=== PATIENT | female | born 1955 | race Caucasian/White ===

== ENCOUNTER → 2024-06-10 08:35 | Outpatient (REF) | payer MEDICARE, OTHER, SELFPAY | LOC: WDC 08:35 | PROVIDERS: ATTENDING PHYSICIAN Obstetrics & Gynecology; FAMILY PHYSICIAN Internal Medicine | DX: Z12.31 Encounter for screening mammogram for malignant neoplasm of breast (principal) | CPT/HCPCS: 77063; 77067 ==

== ENCOUNTER 2025-01-06 20:20 | Observation (INO) | payer MEDICARE, OTHER, SELFPAY ==
[2025-01-06] VITALS (7 sets, daily range): BP systolic 102–142; BP diastolic 65–114; BMI 26.0; BMI 25.0
[2025-01-06 13:51] LABS: Hematocrit 36.8 % (37.0-47.0); Hemoglobin 12.3 g/dL (12.0-16.0); Mean Corp Hgb Conc. 33.4 g/dL (33.0-37.0); Mean Corpuscular Volume 91.1 fL (81.0-99.0); Nucleated Red Blood Cells % 0 %; Platelet Count 206 10^3/uL (130-400); Red Cell Dist. Width 12.2 % (11.5-14.5)
[2025-01-06 14:21] LABS: ALT (SGPT) 15 U/L (0-35); AST (SGOT) 27 U/L (14-36); Albumin 4.0 g/dl (3.5-5.0); Alkaline Phosphatase 72 U/L (38-126); Blood Urea Nitrogen 14 mg/dl (7-17); Calcium 8.9 mg/dl (8.4-10.2); Carbon Dioxide 25 mmol/L (22-30); Chloride 106 mmol/L (98-107); Glucose 163 mg/dl (70-99); Potassium 4.0 mmol/L (3.5-5.1); Sodium 137 mmol/L (135-145); Total Protein 6.1 g/dl (6.3-8.2); eGFR > 60.00
[2025-01-06 14:31] LABS: Troponin I < 0.012 ng/ml
--- NOTE | 2025-01-06 16:30 | ED.GENMED ---
History of Present Illness
General
Chief Complaint: Weakness
Source: patient
Exam Limitations: none
Time Seen by Provider: 01/06/25 16:10
Nursing documentation reviewed up to this point in time: agreed with
History of Present Illness
History of Present Illness:
Patient to ED for eval of mental status changes. States this AM she was having difficulty focusing. reports slurred speech. She also reports that her gait seemed off. tried to get her to come to ED this AM but she declined. This
afternoon spoke with PCP and was able to convince her to come to ED. While in waiting room her symptoms subsided. Denies headache, dizziness, vision changes. Denes fever/chlls, recent llness. No cp/pressure, SOB. No prior history of
similar symptoms. On exam now she is symptom free.
Past History
Past History
ED Past Medical History: Other (RA, vertigo)
Social History
Tobacco: Former smoker
Alcohol: Occasional
Family History
Family History: Other (Mother and father with coronary disease and diabetes)
Review of Systems
Review of Systems
Allergies reviewed?: Yes
All Other Systems: ROS reviewed and negative except as documented in HPI and ROS
Constitutional: Reports no symptoms
EENT: Reports no symptoms
Respiratory: Reports no symptoms
Cardiac: Reports no symptoms
ABD/GI: Reports no symptoms
: Reports no symptoms
Musculoskeletal: Reports no symptoms
Skin: Reports no symptoms
Neurological: Reports other (confusion this AM, unable to focus, slurred speech, 'gait off')
Psychiatric: Reports no symptoms
Phy Exam
General Physical Exam
General Presentation: well appearing and no apparent distress
General age: appears stated age
General Skin: warm and dry
General Habitus: normal
General Mental: alert
Cardiovascular Exam
Cardiovascular Exam: regular rate/rhythm and no edema
Pulmonary Exam
Pulmonary Exam: lungs clear and no respiratory distress
Gastrointestinal Exam
Gastrointestinal Exam: non tender, soft, no organomegaly and non distended
Neurological Exam
Neurological Exam: alert, oriented x3, CN II-XII intact, no motor deficits, no sensory deficits and speech normal
Musculoskeletal Exam
Musculoskeletal Exam: full ROM and neuro vasc intact
Skin Exam
Skin Exam: normal color, warm/dry and no rash
Psychiatric Exam
Psychiatric Exam: normal mood/affect
Course
Orders/Labs/Results
Orders:
Orders
01/06/25 13:24
Electrocardiogram (*1) Urgent
Reason for Study: Fatigue / Weakness
EKG- Treatment ONCE
01/06/25 13:37
Complete Blood Count/With Diff Urgent
Comprehensive Metabolic Panel Urgent
Troponin I Urgent
01/06/25 16:29
CT Head W/o Iv Contrast Urgent
Comment:
Reason For Exam: change in mental status
01/06/25 17:47
Urinalysis Reflex To Culture Urgent
Date Specimen was Collected: 01/06/25
Time Specimen was Collected: 17:42
Urine Microscopic Reflex Cult Urgent
01/06/25 18:21
Aspirin 325 mg PO NOW STA
01/06/25 19:39
Clopidogrel Bisulfate [Plavix] 300 mg PO NOW STA
01/06/25 19:43
Admit/Transfer Patient As Directed
Co-Sign Provider:
Level of Care: Observation services
Assign to:: Telemetry
Physician / Group: Rebecca Watson
Diagnosis: TIA
Reason for Telemetry: CVA/TIA
Date to Stop Telemetry: 01/09/25
Time to Stop Telemetry: 11:00
Code Status As Directed
Resuscitation Status: Full Code
PRN Pain Medication Management As Directed
May give lesser potent ordered pain med per pt: Yes
preference::
Protocol:: Medication orders for pain may be administered in a
manner that supports deferring to patient preference
when the pt is:
- Requesting an ordered lesser potent pain medication.
Least to most potent pain medications are defined
as: acetaminophen < NSAID < tramadol < opioids
(morphine, oxycodone, hydromorphone).
- Requesting a lesser dose of the same medication IF
ORDERED.
- Requesting a less intrusive route of administration
if both routes are prescribed by the provider (PO <
IV).
01/06/25 22:02
Acetaminophen [Tylenol] 650 mg PO Q4HPRN PRN
Atorvastatin [Lipitor] 40 mg PO QPM
01/06/25 22:02
Echo 2D MMode Color/Doppler Routine
Reason for Study: stroke/TIA
Case Management Consult ONCE
Case Management Consult: Discharge Planning
Comment: stroke/tia
DIETARY IP CONSULT Routine
Reason for Consult: stroke/TIA
NEUROLOGY CONSULT Routine
Consulting Provider: Js Wyman
Was physician already notified: Yes
Nutritionist Public [facility] Urgent
MA [place] Routine
Comment:
Reason For Exam: stroke/TIA
Recent pill cam endoscopy?: No
MA Neck With Contrast Routine
Comment:
Reason For Exam: stroke/TIA
Recent pill cam endoscopy?: No
MR Brain Without Contrast Routine
Comment:
Reason For Exam: stroke/TIA
Recent pill cam endoscopy?: No
Activity As Directed
Activity Level: As Tolerated
NIH Stroke Scale As Directed
Directions: Per protocol
Comment: every shift and with any change in condition or mental status
Neurological Checks As Directed
Frequency: q4h
Additional Instructions:: q4h x 24h upon admission to the floor, then qshift & with any change in condition
and mental status
Patient Education As Directed
Type: Stroke education packet
Comment: provide to patient and family
Swallow Screening CVA/TIA ONLY As Directed
Comment: NPO until swallowing screening completed
If patient FAILS swallow screening:: NPO, Speech Therapy consult, Aspiration Precautions
If patient PASSES swallow screening, diet:: Cholesterol Lowering
Above diet order entered?: Yes- passed screening
Vital Signs As Directed
Frequency: Per unit guidelines
Ot Eval And Treat Routine
Pt Eval And Treat Routine
Activity Level: As Tolerated
Speech Therapy Eval & Treat Routine
DX Deep Vein Thrombosis Video Routine
01/06/25 23:00
Amitriptyline [Elavil] 10 mg PO HS
Amitriptyline [Elavil] 25 mg PO HS
Psyllium [Metamucil, Konsyl] 1 packet PO TID@0900,1700,2300
01/07/25 06:00
Cardiovascular Evaluation IN AM
Glycohemoglobin (HgbA1c) IN AM
01/07/25 08:00
Aspirin Chewable [Low Strength Aspirin] 81 mg PO DAILY
Clopidogrel Bisulfate [Plavix] 75 mg PO DAILY
Hydroxychloroquine [Plaquenil] 200 mg PO DAILY
Lactobac/Bifidobac [Visbiome] 1 cap PO DAILY
01/07/25 18:00
Enoxaparin Sodium [Lovenox] 40 mg SC QPM
01/09/25 11:00
DC Protocol for Telemetry ONCE
Abnormal Lab Results
01/06/25 01/06/25
13:37 17:47
RBC 4.04 L 10^6/uL
(4.20-5.40)
Hct 36.8 L %
(37.0-47.0)
Absolute Neuts (auto) 6.8 H 10^3/uL
(1.4-6.5)
Absolute Lymphs (auto) 0.7 L 10^3/uL
(1.2-3.4)
Neutrophils % 84.9 H %
(42.2-75.2)
Lymphocytes % 9.1 L %
(20.5-51.1)
Glucose 163 H mg/dl
(70-99)
Total Protein 6.1 L g/dl
(6.3-8.2)
Urine Albumin (Reflex) 1+ A
(Neg - Trace)
01/06/25 13:37
01/06/25 13:37
Vital Signs
Initial and Last Documented VS:
Initial Vital Signs
Temp Pulse Resp Pulse Ox
97.4 F 69 16 96
01/06/25 13:21 01/06/25 13:21 01/06/25 13:21 01/06/25 13:21
Last Documented Vital Signs
Temp Pulse Resp BP Pulse Ox
98 F 64 14 133/69 99
01/06/25 23:57 01/06/25 23:57 01/06/25 23:57 01/06/25 23:57 01/06/25 23:57
*Pulse Oximetry
SaO2: 96
Oxygen Mode of Delivery: Room air
Patient hypoxic: no
*Critical Care Note
Total Time (30-74mins, 75-104mins- exclusive of procedures): Not Applicable
Update Note
Update Note:
Patient to ED wtih report of slurred speech, difficulties with gait, unable to focus. Symptoms started this AM, resolved prior to exam. No prior history of same. Labs, CT reviewed, no findings to explain her symptoms. Concern for TIA. WIll admit
to hospitalist service. ASA 325mg given in ED
ED Attending Note
-
Portions of this chart may have been created with voice recognition software.� Occasional wrong word or��sound alike� substitutions may have occurred due to the inherent limitations of voice recognition software.
Discharge Plan
Departure
Patient Disposition: Admit
Date of Disposition: 01/06/25
Time of Disposition: 18:20
Presentation/result/management discussed w/ accepting MD/DO: Hospitalist
Patient with high blood pressure during this ER visit?: No
Condition: Fair
Covid-19: Not Applicable
Discharge Problem:
TIA (transient ischemic attack)
Interventions
Interventions:
*Risk Screen - Suicide Last Done: 01/06/25 13:21
*General Assessment Last Done: 01/06/25 16:48
*Neglect/Abuse Screening Last Done: 01/06/25 13:21
*ED- Fall Risk Assessment Last Done: 01/06/25 16:48
*ED COVID-19 Vaccine History Last Done: 01/06/25 16:48
*Nursing Disposition Last Done: 01/06/25 22:00
ED- Cardiac Assessment Last Done: 01/06/25 17:00
ED- Neurological Assessment Last Done: 01/06/25 19:45
ED- Pulmonary Assessment Last Done: 01/06/25 17:00
Discharge Date and Time
Discharge Date/Time: 01/06/25 22:01
[2025-01-06 17:59] LABS: Urine Character Clear (Clear)
[2025-01-06 18:29] LABS: Urine Red Blood Cell 0-2 /HPF (0-2); Urine Squamous Cell 0-2 /LPF (Few); Urine White Cell 0-2 /HPF (0-5)
[2025-01-06] MEDS: ASPIRIN 325 MG PO (18:45)
--- NOTE | 2025-01-06 19:10 | HPS.HSE ---
Family Physician
-
Family Physician: Sriram Rios
Chief Complaint
-
weakness
History of Present Illness
Ms. Saida Vanegas is a 69 yo woman with hx RA, vertigo who presents to the ER with report of slurred speech and abnormal gait. While in the waiting room, her symptoms subsided.
Patient unable to clearly describe timeline of events. She felt like she had difficulty doing things. She said her reported symptoms lasted for 3 hours. No trouble swallowing during event. Denies weakness in one side but had trouble
walking.
No recent fevers/chills. No chest pain. No nausea/vomiting/diarrhea. No LE swelling.
Medical History
Past Medical History
Past Medical History: Reports Other (RA, vertigo)
Past Surgical History: Reports Other
Social History
Tobacco: Former Smoker
Alcohol: None
Family History
Family History: Not pertinent
Allergies / Home Medications
Allergies reflects when Allergies were last updated in [facility].
Home Medications with original date entered in [facility]
Allergy/Medication List:
Allergies
Allergy/AdvReac Type Severity Reaction Status Date / Time
No Known Allergies Allergy Verified 01/06/25 13:23
Home Medications
Lactobac no.2-Bifidobac no.1-S. thermo 112.5 billion cell capsule (Visbiome) 1 cap PO DAILY 01/06/25
amitriptyline 10 mg tablet 10 mg PO DAILY 01/06/25
amitriptyline 25 mg tablet 25 mg PO DAILY 01/06/25
hydroxychloroquine 200 mg tablet (Plaquenil) 200 mg PO DAILY 01/06/25
psyllium 1 packet PO TID 01/06/25
Review of Systems
-
History Source: Patient
A 12 point ROS was completed and negative except as noted: Yes
Physical Exam
Vital Signs
Vital Signs
Temp Pulse Resp BP Pulse Ox
97.4 F 65 15 113/67 99
01/06/25 13:21 01/06/25 18:45 01/06/25 18:45 01/06/25 18:00 01/06/25 18:30
Physical Exam
General: No Apparent Distress and Conversant
HEENT: PERRLA
Respiratory: Clear; No Wheezes
Cardiac: S1/S2 and Regular Rhythm
GI: Soft and Non Tender
Musculoskeletal: No Edema
Skin: Warm and Dry; No Rash
Neuro: AO x 3 and Other (EOMI, no facial asymmetry, speech clear, 5/5 strength upper and lower extremities, sensation grossly in tact no pronator drift )
Psych: Calm
Laboratory Results
-
01/06/25 13:37
01/06/25 13:37
Laboratory Results
Total Bilirubin 0.5 mg/dl (0.2-1.3) 01/06/25 13:37
AST 27 U/L (14-36) 01/06/25 13:37
ALT 15 U/L (0-35) 01/06/25 13:37
Alkaline Phosphatase 72 U/L (38-126) 01/06/25 13:37
Troponin I < 0.012 ng/ml 01/06/25 13:37
Data Reviewed
-
Diagnostic Radiology: Report Reviewed by me
Lab Data: Labs Reviewed by me
Impression/Plan
-
Ms. Saida Vanegas is a 69 yo woman with hx RA, vertigo who presents to the ER with report of slurred speech and abnormal gait. While in the waiting room, her symptoms subsided.
Triage VS: T 97.4, P 69, RR 16, SpO2 96%
LABS: WBC 8, Hg 12.3, PLT 206, Na 137, K+ 4, Cl 106, CO2 25, BUN 14, Cr 0.7, Glucose 163, liver enzymes WNL
UA clear
HEAD CT
IMPRESSION:
No acute intracranial abnormality noted.
No acute intracranial hemorrhage. No mass effect. Atrophy.
concern for TIA
transient slurred speech and abnormal gait
-s/p aspirin 325mg PO x 1 in ER, will also load with plavix given ABCD2 score = 4; patient denies bleeding history
-admit to telemetry, observation
-continue dual antiPLT therapy asa 81mg, Plavix 75mg daily
-Neurology consult
-MRI/MRA head/neck
-TTE
-NIHSS scoring
-PT/OT/ST
RA
-COFFEE FARMER Plaquenil
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
DVT PPx Lovenox subQ
FULL CODE
[2025-01-06] MEDS: PLAVIX 300 MG PO (20:11)
--- NOTE | 2025-01-06 21:59 | PTCARENOTE ---
Pt received from ED to [facility]-2. Pt oriented to room and call solitario.
[2025-01-06] MEDS: LIPITOR 40 MG PO (22:46)
[2025-01-07 03:39] VITALS: BP 123/63
[2025-01-07 07:00] VITALS: BP 129/71
--- NOTE | 2025-01-07 08:13 | CON.NEURO4 ---
Addendum entered and electronically signed by Js Wyman MD 01/07/25 11:33:
Studies reviewed.
I have personally examined the patient. I reviewed and agree with the MAINTENANCE AND UTILITIES SUPERVISOR's Note.
My addenda:
Awake, alert, interactive. No acute distress.
Speech intact.
Follows 2-step requests w/o difficulty. No tremor.
Extra-ocular movements grossly intact.
Facial movements full and symmetric. Hearing intact to normal conversational volume.
Normal UE movements bilaterally.
Neck: full ROM.
Chest: no dyspnea
Heart: no JVD
Ext: (-) Clubbing, (-) Cyanosis, (-) Edema
IMPRESSIONS/RECOMMENDATIONS:
Abrupt onset of dysarthria and confusion
Differential diagnosis includes TIA, seizure
Check MRI of brain
Check neurovascular component
Consider EEG, not clear patient would benefit from antiseizure medication at this time
Continue dual antiplatelet therapy
D/W patient / family
All questions answered.
Will continue to follow patient.
Original Note:
Documented by User: Xenia Cintron NP 01/07/25 10:23
Consultation - Neurology 4
-
CONSULTING PHYSICIAN: Js Wyman MD
REFERRING PHYSICIAN: Hospitalists/Dr. Watson
DICTATED BY: GISSEL Oneal
DATE/TIME OF REQUEST: 01/06/25
DATE/TIME OF CONSULTATION: 01/07/25
Reason for Consultation: Dysarthria
History of Present Illness:
This is a 69-year-old right-handed female who has presented to the hospital with report of dysarthria and confusion. Patient reports that yesterday (01/06/25) she was in her usual state upon awakening, but then mid-morning she just 'didn't feel
right.' Her notes that that her speech seemed slow and slurred, her gait was off-balance, and the patient notes that she went to use her phone to call her PCP but couldn't figure out how to operate her phone. She took convincing to come to
the ER, but shortly after arrival about 3 hours later, her symptoms had resolved. CT head was obtained and is negative for any acute abnormalities. She was not a candidate for TNK/IAT due to NIHSS 0, resolution of symptoms. Today (01/07/25), she
reports feeling at her baseline. She denies any headache, dizziness, vision changes, speech/swallowing difficultly, numbness, and weakness. She was loaded with aspirin and clopidogrel in the ER. She denies any history of TIA, stroke, or events like
this in the past and she was not previously taking any blood-thinning medications.
Past Medical History: Rheumatoid arthritis, IBS, vertigo, anxiety, osteoporosis, osteoarthritis, basal cell carcinoma, chronic hematuria, lumbar pain/sciatica, facial neuropathy?
Surgical History: Left ear stapedectomy, tubal ligation.
Family History: Reviewed and noncontributory.
Social History: Former smoker. Occasional alcohol. No illicit drug use.
Allergies: No known allergies.
Home Medications: See below.
Review of Symptoms:
Patient denies any fever, headache, chest pain, shortness of breath, GI or symptoms.
�Per the HPI.�All systems are reviewed negative except above.
Physical Exam:
The patient is afebrile, abdomen is nondistended, breathing is unlabored, skin is warm and dry, no edema.
NIH Stroke Scale:
I performed the NIH stroke scale on the patient on 01/07/25 at 0910. The patient scored 0 points on the NIH stroke scale assessment, which were assigned as follows: See below.
Neurologic Examination:
The patient is awake, alert and oriented x 3. She is able to follow commands and answer questions appropriately. There is no aphasia or dysarthria. On cranial nerve assessment, pupils are 3 mm bilateral, round and reactive to light and
accommodation. Visual johnson are full. Extraocular movements are intact. Facial sensations are intact and bilaterally symmetrical, there is no facial asymmetry. Hearing is intact bilaterally to normal conversation volume. Tongue palate and uvula are
midline. Sternocleidomastoid strengths are full bilaterally. Motor strengths are 5/5 bilateral upper and lower extremities on medical research [place] scale. There is no drift or involuntary movement noted. Deep tendon reflexes are 2+ bilateral
upper and lower extremities and Babinski is absent bilaterally. There was no extinction noted on double simultaneous stimulation. Coordination is intact by finger to nose bilaterally.
Lab Results: See below.
Neuro Imaging:
1. CT head 01/06/25: No acute intracranial abnormality noted. No acute intracranial hemorrhage. No mass effect. Atrophy.
Differentials for the patient's presentation include:
1. Transient dysarthria, confusion, and gait abnormality concerning for TIA or small ischemic stroke.
Patient has the following risk factors for their symptoms: HLD
IV Tenecteplase/IAT candidacy: She is not a candidate for TNK/IAT due to NIHSS 0.
Recommendations:
-Continue DAPT with aspirin 81mg and clopidogrel 75mg daily for 21 days. After 21 days, discontinue clopidogrel and continue aspirin 81mg daily monotherapy indefinitely.
-CTA head/neck pending.
-MRI brain noncontrast pending.
-Goal normotension as it is now 24 hour since symptom onset.
-LDL goal <70. LDL is 123. Continue newly initiated atorvastatin 40mg daily.
-Goal normoglycemia, hbA1c is 5.3.
-NIHSS and neurological checks per unit guidelines.
-Provide patient with a stroke education packet.
-PT/OT/ST evaluations.
-DVT prophylaxis.
Discussed patient care with: Dr. Wyman, the patient, patient's spouse
Vital Signs and Labs
-
Vital Signs and Labs:
Vital Signs
Temp Pulse Resp BP Pulse Ox
97.3 F 69 20 129/71 97
01/07/25 07:00 01/07/25 07:00 01/07/25 07:00 01/07/25 07:00 01/07/25 07:00
Lab Results
01/06/25 13:37
01/06/25 13:37
Sodium 137 mmol/L (135-145) 01/06/25 13:37
Potassium 4.0 mmol/L (3.5-5.1) 01/06/25 13:37
BUN 14 mg/dl (7-17) 01/06/25 13:37
Glucose 163 mg/dl (70-99) H 01/06/25 13:37
Calcium 8.9 mg/dl (8.4-10.2) 01/06/25 13:37
Medications
-
Active Medications
Generic Name Dose Route Start Last Admin
Trade Name Freq PRN Reason Stop Dose Admin
Acetaminophen 650 mg 01/06/25 22:02
Acetaminophen 325 Mg Tablet PO 02/03/25 22:01
Q4HPRN PRN
OLIVEIRA, mild pain, or temp >100.4F
Amitriptyline HCl 25 mg 01/07/25 08:00 01/07/25 08:22
Amitriptyline 25 Mg Tablet PO 02/04/25 07:59 25 mg
DAILY LUZ Administration
Amitriptyline HCl 10 mg 01/07/25 08:00 01/07/25 08:22
Amitriptyline 10 Mg Tablet PO 02/04/25 07:59 10 mg
DAILY LUZ Administration
Aspirin 81 mg 01/07/25 08:00 01/07/25 08:22
Aspirin 81 Mg Chewable Tablet PO 02/04/25 07:59 81 mg
DAILY LUZ Administration
Atorvastatin Calcium 40 mg 01/06/25 22:02 01/06/25 22:46
Atorvastatin (Lipitor) 40 Mg Tablet PO 02/03/25 22:01 40 mg
QPM LUZ Administration
Clopidogrel Bisulfate 75 mg 01/07/25 08:00 01/07/25 08:22
Clopidogrel 75 Mg Tablet PO 02/04/25 07:59 75 mg
DAILY ULZ Administration
Enoxaparin Sodium 40 mg 01/07/25 18:00
Enoxaparin Sodium 40 Mg/0.4 Ml Syringe SC 02/04/25 17:59
QPM LUZ
Hydroxychloroquine Sulfate 200 mg 01/07/25 08:00 01/07/25 08:22
Hydroxychloroquine 200 Mg Tablet PO 02/04/25 07:59 200 mg
DAILY LUZ Administration
Lactobacillus/Bifidobacterium 1 cap 01/07/25 08:00 01/07/25 08:22
Lactobac/Bifidobac (Visbiome) PO 02/04/25 07:59 1 cap
DAILY LUZ Administration
Psyllium Hydrophilic Mucilloid 1 packet 01/07/25 08:00 01/07/25 08:39
Psyllium Packet PO 02/04/25 07:59 Not Given
DAILY LUZ
Sodium Chloride 0 flush 01/06/25 23:00
Sodium Chloride 0.9% (Flush) Syringe IV 02/03/25 22:59
PER PROTOCOL LUZ
Home Medications
�Medication �Instructions �Recorded
Lactobac no.2-Bifidobac no.1-S. 1 cap PO DAILY 01/06/25
thermo 112.5 billion cell capsule
(Visbiome)
amitriptyline 10 mg tablet 10 mg PO DAILY 01/06/25
amitriptyline 25 mg tablet 25 mg PO DAILY 01/06/25
hydroxychloroquine 200 mg tablet 200 mg PO DAILY 01/06/25
(Plaquenil)
psyllium 1 packet PO DAILY 01/06/25
NIH Stroke Score
Subsequent NIH Scale
Date of Subsequent NIH Scale: 01/07/25
Time of Subsequent NIH Scale: 09:10
NIH Stroke Score
Level of Consciousness: 0 - Alert
LOC Questions: 0-Answers both correctly
LOC Commands: 0-Performs both correctly
Best Horizontal Gaze: 0-Normal
Visual Johnson: 0=Normal, no visual loss
Facial Palsy: 0=Normal, symmetrical
Motor - Right Arm: 0=No drift 10 seconds
Motor - Left Arm: 0=No drift 10 seconds
Motor - Right Le-No drift 5 seconds
Motor - Left Le-No drift 5 seconds
Limb Ataxia: 0-Absent
Sensation: 0-Normal
Best Language: 0-No aphasia
Dysarthria: 0-Normal
Extinction and Inattention: 0-No abnormality
NIH Total Score:: 0
Modified Crockett (mRS) Score
Modified Crockett Scale (mRS): No symptoms
Score: 0
Alteplase Contraindication
Inclusion and Exclusion criteria reviewed: Yes

Documented by User: Js Wyman MD 01/07/25 11:29
NIH Stroke Score
NIH Stroke Score
NIH Total Score:: 0
Modified Crockett (mRS) Score
Score: 0
[2025-01-07] MEDS: LOW STRENGTH ASPIRIN 81 MG PO (08:22)
[2025-01-07] MEDS: PLAQUENIL 200 MG PO (08:22)
[2025-01-07] MEDS: ELAVIL 10 MG PO (08:22)
[2025-01-07] MEDS: PLAVIX 75 MG PO (08:22)
[2025-01-07] MEDS: VISBIOME 1 CAP PO (08:22)
[2025-01-07] MEDS: ELAVIL 25 MG PO (08:22)
[2025-01-07 09:12] LABS: HDL Cholesterol 77 mg/dl; LDL Cholesterol, Calculated 123 mg/dl; Very Low Density Lipoprotein 19 mg/dl (0-30)
[2025-01-07 09:34] LABS: Glycohemoglobin (HgbA1c) 5.3 % (4.0-5.6)
[2025-01-07 09:50] LABS: Ferritin 38.4 ng/ml (11.1-264.0)
[2025-01-07 10:21] LABS: Folate 15.2 ng/ml (2.76-20); Vitamin B12 465 pg/ml (239-931)
--- NOTE | 2025-01-07 11:48 | W.PN.HOSP.TC ---
Addendum entered and electronically signed by Ronn Miramontes MD 01/09/25 15:37:
[id number]
Original Note:
Today's Communication/Plan
-
ASA, Statin
F/u PCP, Neurology outpatient
F/u CBC, BMP, LFTS, Lipid panel outpatient
Assessment / Plan
Assessment / Plan
Physical Exam
General: No Apparent Distress and Conversant
HEENT: PERRLA
Respiratory: Clear; No Wheezes
Cardiac: S1/S2 and Regular Rhythm
GI: Soft and Non Tender
Musculoskeletal: No Edema
Skin: Warm and Dry; No Rash
Neuro: AO x 3 and Other (EOMI, no facial asymmetry, speech clear, 5/5 strength upper and lower extremities, sensation grossly in tact no pronator drift )
Psych: Calm
Ms. Saida Vanegas is a 69 yo woman with hx RA, vertigo who presents to the ER with report of slurred speech and abnormal gait. While in the waiting room, her symptoms subsided.
TIA
transient slurred speech and abnormal gait
-Neurology consulted
-MRI/MRA head/neck - WNL - on acute pathology
-CTA with no evidence of large vessel occlusion, arterial dissection
-TTE�EF 60 to 65%, no evidence of vegetation;
-�Can continue aspirin, statin outpatient due to elevated LDL and transient symptoms
Hyperlipidemia
� Initiate statin, aspirin
Follow-up outpatient
RA
-COMMERCIAL SINGER Plaquenil
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
DVT PPx Lovenox subQ
FULL CODE
More than 30 minutes spent in discharge including
Final examination of the patient
Summarizing hospital stay
Instructions for continuing care to all relevant caregivers
Preparation of discharge records, prescriptions, and referral forms
Total time spent (in minutes): 36
Anticipated Discharge: Today
Subjective/Interval History
-
Date of Service: January 07, 2025
no further symptoms
Objective Data
-
Vital Signs:
Vital Signs
Temp Pulse Resp BP Pulse Ox
97.3 F 69 20 129/71 97
01/07/25 07:00 01/07/25 07:00 01/07/25 07:00 01/07/25 07:00 01/07/25 07:00
I&O
01/06/25 01/07/25 01/08/25
06:59 06:59 06:59
Intake Total 340 / 340
Balance 340 / 340
Review of Systems
-
History Source: Patient
All other systems: Not reviewed unless documented
Data Reviewed
-
CT Scan: Report Reviewed by me
MRI: Report Reviewed by me
Labs: Labs Reviewed by me
[2025-01-07 12:20] VITALS: BP 127/66
--- NOTE | 2025-01-07 12:30 | PTOTSP ---
ST Acute Care Evaluation
Pt currently presents with clinical signs of generally functional oropharyngeal and esophageal swallowing parameters. Pt did not exhibit any gross s/s of penetration/aspiration at bedside.
Recommendations:
- Continue regular solids, thin liquids, meds as tolerated.
- General aspiration precautions.
- Pt being discharged after this evaluation - no f/u HELP DESK ENGINEER services IP indicated.
- Further cognitive linguistic evaluation as an OP if desired by pt.
--- NOTE | 2025-01-07 12:31 | CM ---
CM reviewed chart, patient seen bedside with spouse, initial assessment completed. Patient resides with in a multiple story home, four steps to enter. Patient is independent with ADLs/IADLs, denies use of DME. Patient denies VN/SNF history.
Patient confirms PCP Sriram Rios, pharmacy [facility], confirms prescription coverage. Patient denies insecurities at home. HERNANDEZ verbally reviewed, provided with copy, placed in chart. Patient for discharge today, to
transport. CM will continue to follow for all discharge planning needs.
Plan; home no needs
== END 2025-01-07 12:47 | disposition home or self-care (01) ==
LOC: 4 WEST ACU 20:20
PROVIDERS: Emergency Medicine; Nurse Practitioner; ADMITTING PHYSICIAN Student in an Organized Health Care Education/Training Program; ATTENDING PHYSICIAN Internal Medicine; CONSULT PHYSICIAN Psychiatry & Neurology Neurology; EMERGENCY PHYSICIAN Emergency Medicine; FAMILY PHYSICIAN Internal Medicine
DX: R47.1 Dysarthria and anarthria (principal); R26.89 Other abnormalities of gait and mobility; M06.9 Rheumatoid arthritis, unspecified; E78.5 Hyperlipidemia, unspecified; Z79.899 Other long term (current) drug therapy; Z87.891 Personal history of nicotine dependence
CPT/HCPCS: 70450; 70496; 70498; 70551; 80053; 80061; 81003; 81015; 82607; 82728; 82746; 83036; 84443; 84484; 85025; 92610; 93005; 93306; 99285; G0378; Q9967